=== PATIENT | male | born 1975 | race Two or more races ===

== ENCOUNTER → 2016-08-13 | Outpatient (CLI) | payer OTHER ==
[~2016-08-13] MED LIST: LEVO25TA4 PO; TRAM50TA2 PO
== END | disposition home or self-care (01) ==
LOC: RAD 12:04
PROVIDERS: ATTEND Family Medicine
DX: M19.011 Primary osteoarthritis, right shoulder (principal); M25.411 Effusion, right shoulder; M75.91 Shoulder lesion, unspecified, right shoulder

== ENCOUNTER 2016-12-21 03:52 | Emergency (ER) | payer OTHER ==
[~2016-12-21] VITALS: Ht 167.6 cm; Wt 81.2 kg
[~2016-12-21 03:52] MED LIST changes: +PRAV20TA2 PO
[2016-12-21] MEDS ORDERED: SODIUM CHLORIDE FLUSH 10ML SYR IVF ONE (05:00)
[2016-12-21] MEDS ORDERED: LORazepam 2 MG/ML, 1ML IVPush ONE (05:00)
[2016-12-21] MEDS ORDERED: KETOROLAC 30 MG/1 ML IVPush ONE (05:00)
[2016-12-21] MEDS ORDERED: SODIUM CHLORIDE 0.9% 1,000ML IVBOLUS ONE (05:00)
[2016-12-21] MEDS ORDERED: KETOROLAC 30 MG/1 ML ONE (05:12)
[2016-12-21] MEDS ORDERED: LORazepam 2 MG/ML, 1ML ONE (05:12)
[2016-12-21 05:35] LABS: RAPID INFLUENZA A Negative (Negative); RAPID INFLUENZA B Negative (Negative)
[2016-12-21 05:55] LABS: HEMATOCRIT 39.8 % (39.2-51.8); HEMOGLOBIN 14.2 g/dL (13.7-18.0); WHITE BLOOD COUNT 6.6 x10^3/uL (3.4-10)
[2016-12-21 06:08] LABS: BLOOD UREA NITROGEN 13 mg/dL (7-18)
[2016-12-21 06:15] VITALS: BP 117/76
== END 2016-12-21 06:41 | disposition home or self-care (01) ==
LOC: ED 06:30
DX: M25.511 Pain in right shoulder (principal)
CPT/HCPCS: 36415; 71020; 80048; 81003; 82040; 83605; 85025; 87400; 96361; 96374; 96375; 99285; J1885; J2060; J7030

== ENCOUNTER 2017-04-29 05:33 | Emergency (ER) | payer OTHER ==
[~2017-04-29] VITALS: Ht 165.1 cm; Wt 86.3 kg
[2017-04-29 05:54] LABS: MICROSCOPIC NOT IND
[2017-04-29 05:55] LABS: CULTURE INDICATED? NO
[2017-04-29] MEDS ORDERED: KETOROLAC 30 MG/1 ML ONE (05:56)
[2017-04-29] MEDS ORDERED: SODIUM CHLORIDE FLUSH 10ML SYR IVF ONE (06:00)
[2017-04-29] MEDS ORDERED: KETOROLAC 30 MG/1 ML IVPush ONE (06:00)
[2017-04-29] MEDS ORDERED: SODIUM CHLORIDE 0.9% 1,000ML IVBOLUS ONE (06:00)
[2017-04-29 06:15] LABS: BASOPHILS # (AUTO) 0.08 x10^3/uL (0-0.1); BASOPHILS % (AUTO) 1 % (0-1); EOSINOPHILS # (AUTO) 0.41 x10^3/uL (0-0.4); EOSINOPHILS % (AUTO) 6 % (1-7); LYMPHOCYTES # (AUTO) 2.74 x10^3/uL (1-3.4); LYMPHOCYTES % (AUTO) 37 % (22-44); MD NO; MEAN CORPUSCULAR HEMOGLOBIN 31.8 pg (27.5-34.5); MEAN CORPUSCULAR HGB CONC 34.6 g/dL (33.2-36.2); MEAN CORPUSCULAR VOLUME 91.9 fL (81-97); MEAN PLATELET VOLUME 8.9 fL (7.4-10.4); MONOCYTES # (AUTO) 0.52 x10^3/uL (0.2-0.8); MONOCYTES % (AUTO) 7 % (2-9); NEUTROPHILS # (AUTO) 3.72 x10^3/uL (1.8-6.8); NEUTROPHILS % (AUTO) 50 % (42-75); PLATELET COUNT 224 x10^3/uL (130-400); RED BLOOD COUNT 5.31 x10^6/uL (4.38-5.82); RED CELL DISTRIBUTION WIDTH 13.3 % (9.4-14.8)
[2017-04-29] MEDS ORDERED: FLUO20CA19 PO (06:26)
[2017-04-29 06:28] LABS: ALANINE AMINOTRANSFERASE 99 U/L (12-78); ALBUMIN 4.2 g/dL (3.4-5.0); ANION GAP 7 mmol/L (5-15); CALCIUM 8.7 mg/dL (8.5-10.1); CHLORIDE 108 mmol/L (98-107)
[2017-04-29 06:30] LABS: ALKALINE PHOSPHATASE 94 U/L (45-117); BILIRUBIN,TOTAL 1.1 mg/dL (0.2-1.0); CREATININE 1.25 mg/dL (0.7-1.3); TOTAL PROTEIN 7.6 g/dL (6.4-8.2)
[2017-04-29 07:20] VITALS: BP 126/90
== END 2017-04-29 07:33 | disposition home or self-care (01) ==
LOC: ED 07:00
DX: N30.90 Cystitis, unspecified without hematuria (principal); N40.0 Benign prostatic hyperplasia without lower urinary tract symptoms; E78.5 Hyperlipidemia, unspecified
CPT/HCPCS: 36415; 76870; 80053; 81003; 85025; 93975; 96361; 96374; 99285; J1885; J7030

== ENCOUNTER 2017-06-18 07:47 | Inpatient (IN) | payer OTHER ==
[~2017-06-18] VITALS: Ht 167.6 cm; Wt 89.0 kg
[~2017-06-18 07:47] MED LIST changes: +FLUO20CA19 PO
[2017-06-18] MEDS ORDERED: ACETAMINOPHEN 500 MG TABLET ONE (08:09)
[2017-06-18] MEDS ORDERED: GABA300C10 PO (08:19)
[2017-06-18] MEDS ORDERED: ATOR40TA78 PO (08:19)
[2017-06-18] MEDS ORDERED: TAMS0.4C2 PO (08:19)
[2017-06-18 08:29] LABS: BASOPHILS # (AUTO) 0.01 x10^3/uL (0-0.1); BASOPHILS % (AUTO) 0 % (0-1); EOSINOPHILS # (AUTO) 0.01 x10^3/uL (0-0.4); EOSINOPHILS % (AUTO) 0 % (1-7); LYMPHOCYTES # (AUTO) 0.89 x10^3/uL (1-3.4); LYMPHOCYTES % (AUTO) 7 % (22-44); MD NO; MEAN CORPUSCULAR HEMOGLOBIN 31.4 pg (27.5-34.5); MEAN CORPUSCULAR VOLUME 92.4 fL (81-97); MONOCYTES # (AUTO) 0.72 x10^3/uL (0.2-0.8); MONOCYTES % (AUTO) 5 % (2-9); NEUTROPHILS # (AUTO) 11.85 x10^3/uL (1.8-6.8); NEUTROPHILS % (AUTO) 88 % (42-75); PLATELET COUNT 159 x10^3/uL (130-400); RED BLOOD COUNT 4.65 x10^6/uL (4.38-5.82); RED CELL DISTRIBUTION WIDTH 13.5 % (9.4-14.8)
[2017-06-18] MEDS ORDERED: ACETAMINOPHEN 500 MG TABLET PO ONE (08:30)
[2017-06-18 08:35] LABS: ALANINE AMINOTRANSFERASE 68 U/L (12-78); ALBUMIN 3.6 g/dL (3.4-5.0); ANION GAP 9 mmol/L (5-15); CALCIUM 8.5 mg/dL (8.5-10.1); CHLORIDE 110 mmol/L (98-107); CREATININE 1.54 mg/dL (0.7-1.3)
[2017-06-18 08:38] LABS: ALKALINE PHOSPHATASE 77 U/L (45-117); BILIRUBIN,TOTAL 0.8 mg/dL (0.2-1.0); TOTAL PROTEIN 7.1 g/dL (6.4-8.2)
[2017-06-18 08:46] LABS: MICROSCOPIC AUTO
[2017-06-18 08:50] LABS: CULTURE INDICATED? NO
[2017-06-18] MEDS ORDERED: SODIUM CHLORIDE 0.9% 1,000 ML IV ONE (09:11)
[2017-06-18] MEDS ORDERED: SODIUM CHLORIDE FLUSH 10ML SYR IVF ONE (09:30)
[2017-06-18] MEDS ORDERED: SODIUM CHLORIDE 0.9% 1,000ML IVBOLUS ONE (09:30)
[2017-06-18] MEDS ORDERED: CEFTRIAXONE PMX 1GM/50ML 50 ML IVPB ONE (09:30)
[2017-06-18] MEDS ORDERED: CEFTRIAXONE PMX 1GM/50ML 50 ML ONE (09:38)
[2017-06-18] MEDS ORDERED: DOCUSATE 100 MG CAPSULE PO PRN (11:00)
[2017-06-18] MEDS ORDERED: morphine SULFATE 10 MG/ML, 1ML IVPush PRN (11:00)
[2017-06-18] MEDS ORDERED: ONDANSETRON ODT 4 MG PO PRN (11:00)
[2017-06-18] MEDS ORDERED: BISACODYL 10 MG SUPP PR PRN (11:00)
[2017-06-18] MEDS ORDERED: LABETALOL 5MG/ML, 20ML IVPush PRN (11:00)
[2017-06-18] MEDS ORDERED: hydrALAzine 20 MG/ML, 1ML IVPush PRN (11:00)
[2017-06-18] MEDS ORDERED: POLYETHYLENE GLYCOL 17 GM PACKET PO PRN (11:00)
[2017-06-18 11:04] VITALS: BP 99/63
[2017-06-18] MEDS: HEPARIN 5,000 UNITS/ML, 1ML SQ SCH ×2 (11:39→21:36)
[2017-06-18] MEDS: HYDROcodone/APAP 5/325 TABLET PO PRN ×2 (11:39→23:55)
[2017-06-18] MEDS: SODIUM CHLORIDE 0.9% 1,000 ML IV SCH ×3 (11:43→23:51)
[2017-06-18 13:25] VITALS: BP 128/64
[2017-06-18] MEDS: GABAPENTIN 100 MG CAPSULE PO SCH ×2 (16:30→21:36)
[2017-06-18] MEDS: ACETAMINOPHEN 325 MG TABLET PO PRN (18:29)
[2017-06-18 19:54] VITALS: BP 108/70
[2017-06-18] MEDS: ATORVASTATIN 40 MG TABLET PO SCH (21:36)
[2017-06-19 02:58] VITALS: BP 107/62
[2017-06-19] MEDS: HEPARIN 5,000 UNITS/ML, 1ML SQ SCH ×3 (05:14→21:51)
[2017-06-19] MEDS: LEVOTHYROXINE 100 MCG TABLET PO SCH (05:15)
[2017-06-19 05:32] LABS: BASOPHILS # (AUTO) 0.03 x10^3/uL (0-0.1); BASOPHILS % (AUTO) 0 % (0-1); EOSINOPHILS # (AUTO) 0.13 x10^3/uL (0-0.4); EOSINOPHILS % (AUTO) 1 % (1-7); LYMPHOCYTES % (AUTO) 16 % (22-44); MD NO; MEAN CORPUSCULAR HGB CONC 34.5 g/dL (33.2-36.2); MEAN CORPUSCULAR VOLUME 92.9 fL (81-97); MEAN PLATELET VOLUME 9.3 fL (7.4-10.4); MONOCYTES # (AUTO) 0.96 x10^3/uL (0.2-0.8); MONOCYTES % (AUTO) 9 % (2-9); NEUTROPHILS # (AUTO) 8.11 x10^3/uL (1.8-6.8); NEUTROPHILS % (AUTO) 74 % (42-75); PLATELET COUNT 138 x10^3/uL (130-400); RED CELL DISTRIBUTION WIDTH 13.2 % (9.4-14.8)
[2017-06-19 05:43] LABS: CHLORIDE 113 mmol/L (98-107)
[2017-06-19 05:48] LABS: ALANINE AMINOTRANSFERASE 59 U/L (12-78); ALBUMIN 2.9 g/dL (3.4-5.0); ALKALINE PHOSPHATASE 70 U/L (45-117); ANION GAP 5 mmol/L (5-15); BILIRUBIN,TOTAL 0.5 mg/dL (0.2-1.0); CALCIUM 7.7 mg/dL (8.5-10.1); CREATININE 1.18 mg/dL (0.7-1.3); TOTAL PROTEIN 5.9 g/dL (6.4-8.2)
[2017-06-19 06:04] LABS: RAPID INFLUENZA A Negative (Negative); RAPID INFLUENZA B Negative (Negative)
[2017-06-19 06:18] LABS: MICROSCOPIC NOT IND
[2017-06-19 06:20] LABS: CULTURE INDICATED? NO
[2017-06-19 06:23] LABS: CHLORIDE,URINE RANDOM 188 mmol/L; POTASSIUM,URINE RANDOM 16 mmol/L; SODIUM,URINE RANDOM 188 mmol/L
[2017-06-19] MEDS: SODIUM CHLORIDE 0.9% 1,000 ML IV SCH ×2 (06:39→15:00)
[2017-06-19 06:50] VITALS: BP 118/74
[2017-06-19] MEDS: GABAPENTIN 100 MG CAPSULE PO SCH (08:33)
[2017-06-19] MEDS: CEFTRIAXONE PMX 1GM/50ML 50 ML IV SCH (08:33)
[2017-06-19] MEDS: FLUOXETINE HCL 20 MG CAPSULE PO SCH (08:33)
[2017-06-19] MEDS: TAMSULOSIN 0.4 MG CAP.ER.24H PO SCH (08:33)
[2017-06-19] MEDS: ACETAMINOPHEN 325 MG TABLET PO PRN (08:39)
[2017-06-19 12:31] VITALS: BP 107/58
[2017-06-19 21:05] VITALS: BP 105/71
[2017-06-19] MEDS: GABAPENTIN 300 MG CAPSULE PO SCH (21:49)
[2017-06-19] MEDS: ATORVASTATIN 40 MG TABLET PO SCH (21:49)
[2017-06-19] MEDS ORDERED: DIPHENHYDRAMINE 50 MG CAPSULE PO PRN (23:00)
[2017-06-20] MEDS: SODIUM CHLORIDE 0.9% 1,000 ML IV SCH ×2 (01:30→07:50)
[2017-06-20 02:45] VITALS: BP 103/68
[2017-06-20] MEDS: HEPARIN 5,000 UNITS/ML, 1ML SQ SCH ×2 (05:00→08:18)
[2017-06-20 05:39] LABS: BASOPHILS # (AUTO) 0.04 x10^3/uL (0-0.1); BASOPHILS % (AUTO) 1 % (0-1); EOSINOPHILS # (AUTO) 0.28 x10^3/uL (0-0.4); EOSINOPHILS % (AUTO) 4 % (1-7); LYMPHOCYTES # (AUTO) 2.02 x10^3/uL (1-3.4); LYMPHOCYTES % (AUTO) 27 % (22-44); MD NO; MEAN CORPUSCULAR HEMOGLOBIN 31.7 pg (27.5-34.5); MEAN CORPUSCULAR HGB CONC 34.1 g/dL (33.2-36.2); MEAN PLATELET VOLUME 9.3 fL (7.4-10.4); MONOCYTES # (AUTO) 0.74 x10^3/uL (0.2-0.8); MONOCYTES % (AUTO) 10 % (2-9); NEUTROPHILS % (AUTO) 59 % (42-75); PLATELET COUNT 151 x10^3/uL (130-400); RED BLOOD COUNT 4.24 x10^6/uL (4.38-5.82); RED CELL DISTRIBUTION WIDTH 13.5 % (9.4-14.8)
[2017-06-20] MEDS: LEVOTHYROXINE 100 MCG TABLET PO SCH (05:42)
[2017-06-20 05:50] LABS: CHLORIDE 110 mmol/L (98-107)
[2017-06-20 05:57] LABS: ANION GAP 9 mmol/L (5-15); CALCIUM 8.1 mg/dL (8.5-10.1); CREATININE 1.15 mg/dL (0.7-1.3)
[2017-06-20 06:37] VITALS: BP 113/71
[2017-06-20] MEDS: FLUOXETINE HCL 20 MG CAPSULE PO SCH (08:18)
[2017-06-20] MEDS: GABAPENTIN 300 MG CAPSULE PO SCH (08:18)
[2017-06-20] MEDS: TAMSULOSIN 0.4 MG CAP.ER.24H PO SCH (08:19)
[2017-06-20] MEDS: CEFTRIAXONE PMX 1GM/50ML 50 ML IV SCH (09:08)
[2017-06-20 12:11] VITALS: BP 137/89
[2017-06-20] MEDS ORDERED: CEFD300C37 PO (13:16)
== END 2017-06-20 13:35 | disposition home or self-care (01) | DRG 872 ==
LOC: ED 09:44 → EDIP 09:55 → 4NOR 10:50 → DCLOUNGE 06-20 13:30
PROVIDERS: ADMIT Hospitalist; ATTEND Hospitalist
DX: A41.9 Sepsis, unspecified organism (principal); N17.9 Acute kidney failure, unspecified; K76.0 Fatty (change of) liver, not elsewhere classified; J98.11 Atelectasis; E03.9 Hypothyroidism, unspecified; E78.00 Pure hypercholesterolemia, unspecified; E78.5 Hyperlipidemia, unspecified; E86.0 Dehydration; F32.9 Major depressive disorder, single episode, unspecified; I10 Essential (primary) hypertension; J02.9 Acute pharyngitis, unspecified; N40.0 Benign prostatic hyperplasia without lower urinary tract symptoms; M54.2 Cervicalgia; M54.5 Low back pain; Z79.899 Other long term (current) drug therapy; Z83.3 Family history of diabetes mellitus; Z90.49 Acquired absence of other specified parts of digestive tract
CPT/HCPCS: 36415; 71045; 72110; 76700; 76770; 80048; 80053; 81001; 81003; 82436; 82570; 83605; 83690; 84133; 84145; 84300; 85025; 86308; 87040; 87081; 87400; 87880; 96365; J0696; J1644; J7030

== ENCOUNTER 2019-02-09 19:12 | Emergency (ER) | payer OTHER ==
[~2019-02-09] VITALS: Ht 167.6 cm; Wt 89.1 kg
[~2019-02-09 19:12] MED LIST changes: +ATOR40TA78 PO; +CEFD300C37 PO; +GABA300C10 PO; +TAMS0.4C2 PO
[2019-02-09] MEDS ORDERED: IBUPROFEN 600 MG TABLET ONE (19:24)
[2019-02-09] MEDS ORDERED: IBUPROFEN 200 MG TABLET PO ONE (19:30)
[2019-02-09] MEDS ORDERED: DEXAMETHASONE 4 MG TABLET ONE (19:43)
[2019-02-09 19:51] LABS: RAPID INFLUENZA A POSITIVE (Negative); RAPID INFLUENZA B Negative (Negative)
--- NOTE | 2019-02-09 19:58 | NUR ---
MEDICATED PER EMAR PROVIDER MADE AWARE OF CONTINUED FEVER
[2019-02-09 20:00] VITALS: BP 138/77
[2019-02-09] MEDS ORDERED: DEXAMETHASONE 4 MG TABLET PO ONE (20:00)
[2019-02-09] MEDS ORDERED: ACETAMINOPHEN 500 MG TABLET ONE (20:11)
[2019-02-09] MEDS ORDERED: ONDANSETRON ODT 4 MG ONE (20:11)
[2019-02-09] MEDS ORDERED: ONDANSETRON ODT 4 MG PO PRN (20:30)
[2019-02-09] MEDS ORDERED: ACETAMINOPHEN 500 MG TABLET PO ONE (21:00)
== END 2019-02-09 20:30 | disposition home or self-care (01) ==
LOC: ED 20:25
DX: J10.1 Influenza due to other identified influenza virus with other respiratory manifestations (principal); M79.10 Myalgia, unspecified site; Z72.89 Other problems related to lifestyle
CPT/HCPCS: 87081; 87400; 87880; 99284

== ENCOUNTER 2019-10-04 05:47 | Emergency (ER) | payer OTHER ==
[~2019-10-04] VITALS: Ht 165.1 cm; Wt 84.5 kg
--- NOTE | 2019-10-04 06:02 | NUR ---
THIS IS A 44Y M THAT COMES IN TONIGHT FOR SUDDEN INTERMITTENT CP STARTING AROUND 0100 WHILE AT WORK. PT AMBULATORY, A/OX4 ABLE TO SPEAK IN FULL SENTENCES VSS. PT REPORTS CP DOES NOT RADIATE AND CURRENTLY FEELS BETTER. NADN. PT CONNECTED TO ALL MONITORING. ERP AT BEDSIDE FOR ASSESSMENT
--- NOTE | 2019-10-04 06:13 | NUR ---
PIV STARTED, LABS DRAWN, FSBS 112. [facility] AT [facility].
[2019-10-04] MEDS ORDERED: ASPIRIN 81 MG TABLET CHEW ONE (06:19)
[2019-10-04] MEDS ORDERED: KETOROLAC 30 MG/1 ML ONE (06:19)
[2019-10-04 06:22] VITALS: BP 126/71
--- NOTE | 2019-10-04 06:22 | NUR ---
PT MEDICATED PER SHASTA CHICAS. TOLERATED WELL 5 RIGHTS VERIFIED.
[2019-10-04 06:25] LABS: BASOPHILS # (AUTO) 0.04 x10^3/uL (0-0.1); BASOPHILS % (AUTO) 1 % (0-1); EOSINOPHILS # (AUTO) 0.04 x10^3/uL (0-0.4); EOSINOPHILS % (AUTO) 1 % (1-7); LYMPHOCYTES # (AUTO) 1.41 x10^3/uL (1-3.4); LYMPHOCYTES % (AUTO) 17 % (22-44); MD NO; MEAN CORPUSCULAR HEMOGLOBIN 32.6 pg (27.5-34.5); MEAN CORPUSCULAR HGB CONC 34.5 g/dL (33.2-36.2); MEAN PLATELET VOLUME 9.1 fL (7.4-10.4); MONOCYTES # (AUTO) 0.42 x10^3/uL (0.2-0.8); MONOCYTES % (AUTO) 5 % (2-9); NEUTROPHILS # (AUTO) 6.32 x10^3/uL (1.8-6.8); NEUTROPHILS % (AUTO) 77 % (42-75); PLATELET COUNT 201 x10^3/uL (130-400); RED BLOOD COUNT 4.86 x10^6/uL (4.38-5.82); RED CELL DISTRIBUTION WIDTH 13.4 % (9.4-14.8)
[2019-10-04] MEDS ORDERED: ASPIRIN 81 MG TABLET CHEW PO ONE (06:30)
[2019-10-04] MEDS ORDERED: KETOROLAC 30 MG/1 ML IVPush ONE (06:30)
[2019-10-04] MEDS ORDERED: SODIUM CHLORIDE FLUSH 10ML SYR IVF ONE (06:30)
[2019-10-04 06:34] LABS: ALBUMIN 4.3 g/dL (3.4-5.0); ANION GAP 9 mmol/L (5-15); CALCIUM 8.8 mg/dL (8.5-10.1); CHLORIDE 108 mmol/L (98-107); CREATININE 1.14 mg/dL (0.7-1.3)
[2019-10-04 06:37] LABS: TROPONIN I < 0.015 ng/mL (0.000-0.045)
--- NOTE | 2019-10-04 06:47 | NUR ---
TECH AT BEDSIDE FOR REPEAT EKG
--- NOTE | 2019-10-04 07:00 | NUR ---
SBAR HAND-OFF REPORT RECEIVED FROM LO POE. ASSUMING CARE OF PATIENT.
--- NOTE | 2019-10-04 08:21 | NUR ---
Patient given discharge instructions and they have confirmed that they understand the instructions. Patient ambulatory with steady gait.
== END 2019-10-04 08:22 | disposition home or self-care (01) ==
LOC: ED 06:38
DX: R07.89 Other chest pain (principal); I10 Essential (primary) hypertension; R94.31 Abnormal electrocardiogram [ECG] [EKG]; E78.5 Hyperlipidemia, unspecified; Z87.891 Personal history of nicotine dependence
CPT/HCPCS: 71045; 80048; 82040; 82962; 84484; 85025; 93005; 96374; 99285; J1885

== ENCOUNTER 2020-05-07 04:42 | Emergency (ER) | payer OTHER ==
[~2020-05-07] VITALS: Ht 167.6 cm; Wt 85.6 kg
--- NOTE | 2020-05-07 05:06 | NUR ---
Pt states having ST, bilat upper chest pain, SOB that is worse with inspiration, nausea, that is all intermittent x 2 day. Pt currently denies CP. Pt states upper abd pain. Pt on monitor, warm blanket given. Call light in reach. Will monitor.
[2020-05-07] MEDS ORDERED: ONDANSETRON ODT 4 MG ONE (05:11)
[2020-05-07] MEDS ORDERED: KETOROLAC 30 MG/1 ML ONE (05:11)
[2020-05-07] MEDS ORDERED: ONDANSETRON ODT 4 MG PO ONE (05:30)
[2020-05-07] MEDS ORDERED: KETOROLAC 30 MG/1 ML IM ONE (05:30)
[2020-05-07 05:33] LABS: BASOPHILS % (AUTO) 1 % (0-1); EOSINOPHILS % (AUTO) 2 % (1-7); LYMPHOCYTES % (AUTO) 26 % (22-44); MEAN CORPUSCULAR HEMOGLOBIN 32.5 pg (27.5-34.5); MEAN CORPUSCULAR HGB CONC 35.3 g/dL (33.2-36.2); MEAN PLATELET VOLUME 8.8 fL (7.4-10.4); MONOCYTES % (AUTO) 7 % (2-9); NEUTROPHILS % (AUTO) 64 % (42-75); PLATELET COUNT 204 x10^3/uL (130-400); RED BLOOD COUNT 4.84 x10^6/uL (4.38-5.82); RED CELL DISTRIBUTION WIDTH 12.8 % (9.4-14.8)
[2020-05-07 05:34] LABS: MD NO
[2020-05-07 05:48] LABS: ALBUMIN 4.2 g/dL (3.4-5.0); ANION GAP 7 mmol/L (5-15); CALCIUM 9.3 mg/dL (8.5-10.1); CHLORIDE 107 mmol/L (98-107)
[2020-05-07 05:52] LABS: ALANINE AMINOTRANSFERASE 62 U/L (12-78); ALKALINE PHOSPHATASE 91 U/L (45-117); BILIRUBIN,TOTAL 1.3 mg/dL (0.2-1.0); CREATININE 1.17 mg/dL (0.7-1.3); TOTAL PROTEIN 7.5 g/dL (6.4-8.2)
[2020-05-07 06:14] VITALS: BP 118/69
== END 2020-05-07 06:17 | disposition home or self-care (01) ==
LOC: ED 05:07
DX: B34.9 Viral infection, unspecified (principal); R10.9 Unspecified abdominal pain; R51.9 Headache, unspecified; I10 Essential (primary) hypertension
CPT/HCPCS: 36415; 71045; 80053; 85025; 93005; 99285